=== PATIENT | female | born 1950 | race Caucasian/White ===

== ENCOUNTER 2018-07-01 16:44 | Emergency (ER) | payer MEDICARE, OTHER ==
[~2018-07-01] VITALS: Ht 162.6 cm; Wt 70.0 kg
[2018-07-01 16:53] VITALS: TEMP 97.4
[2018-07-01] MEDS ORDERED: TOPROL XL 25MG25 MG PO (17:38)
[2018-07-01] MEDS ORDERED: LIPITOR 10MG10 MG PO (17:39)
[2018-07-01] MEDS ORDERED: MULTI VITAMINS1 TAB PO (17:40)
[2018-07-01] MEDS ORDERED: THE MEDICINE S200 M2 PO (17:41)
[2018-07-01] MEDS ORDERED: LUTEIN20 M1 PO (17:41)
[2018-07-01] MEDS ORDERED: OMEGA-31 SGL PO (17:41)
[2018-07-01] MEDS ORDERED: MASON NATURAL2000 IU (17:42)
[2018-07-01] MEDS ORDERED: CALCIUM 600-D 61 TAB PO (17:42)
[2018-07-01] MEDS ORDERED: ASPIRIN 81M81 MG/TA2 PO (17:42)
[2018-07-01] MEDS ORDERED: B-12 250 MCG (17:43)
[2018-07-01] MEDS ORDERED: XARELTO15 MG PO (18:28)
[2018-07-01 19:30] VITALS: BP 120/70; PULSE 81
== END 2018-07-01 19:30 | disposition home or self-care (01) ==
LOC: COL.ER 16:44
DX: I82.4Z1 Acute embolism and thrombosis of unspecified deep veins of right distal lower extremity (principal); Z79.82 Long term (current) use of aspirin

== ENCOUNTER → 2018-09-23 | Outpatient (CLI) | payer MEDICARE, OTHER ==
[~2018-09-23] MED LIST: ASPIRIN 81M81 MG/TA2 PO; B-12 250 MCG; CALCIUM 600-D 61 TAB PO; LIPITOR 10MG10 MG PO; LUTEIN20 M1 PO; MASON NATURAL2000 IU; MULTI VITAMINS1 TAB PO; OMEGA-31 SGL PO; THE MEDICINE S200 M2 PO; TOPROL XL 25MG25 MG PO; XARELTO15 MG PO
== END ==
LOC: COL.VAS 11:05
DX: I82.401 Acute embolism and thrombosis of unspecified deep veins of right lower extremity (principal)

== ENCOUNTER → 2018-10-20 | Outpatient (CLI) | payer MEDICARE, OTHER | LOC: MC.RAD 12:26 | DX: Z12.31 Encounter for screening mammogram for malignant neoplasm of breast (principal) ==

== ENCOUNTER → 2019-11-22 | Outpatient (CLI) | payer MEDICARE, OTHER | LOC: MC.RAD 08:56 | DX: Z12.31 Encounter for screening mammogram for malignant neoplasm of breast (principal) ==

== ENCOUNTER → 2021-01-10 | Outpatient (CLI) | payer MEDICARE, OTHER | LOC: MC.RAD 12-21 09:15 | DX: Z12.31 Encounter for screening mammogram for malignant neoplasm of breast (principal) ==

== ENCOUNTER → 2021-11-04 | Outpatient (CLI) | payer MEDICARE, OTHER | LOC: MHCPAIN 09:46 | DX: R07.81 Pleurodynia (principal); M54.6 Pain in thoracic spine | CPT/HCPCS: G0463 ==

== ENCOUNTER → 2021-12-04 | Outpatient (CLI) | payer MEDICARE, OTHER | LOC: MHCPAIN 10:23 | DX: R07.81 Pleurodynia (principal); M54.6 Pain in thoracic spine | CPT/HCPCS: G0463 ==

== ENCOUNTER → 2022-01-15 | Outpatient (CLI) | payer MEDICARE, OTHER | LOC: MC.RAD 09:00 | DX: Z12.31 Encounter for screening mammogram for malignant neoplasm of breast (principal) ==

== ENCOUNTER → 2022-12-11 | Outpatient (CLI) | payer MEDICARE, OTHER ==
[~2022-12-11] MED LIST changes: +FLEXERIL 1010 MG/TAB PO
== END ==
LOC: MHCPAIN 13:24
DX: M54.17 Radiculopathy, lumbosacral region (principal); M51.36 Other intervertebral disc degeneration, lumbar region; M79.18 Myalgia, other site
CPT/HCPCS: G0463

== ENCOUNTER → 2023-01-20 | Outpatient (CLI) | payer MEDICARE | LOC: CANSCHCLI → MC.RAD 14:19 | DX: Z12.31 Encounter for screening mammogram for malignant neoplasm of breast (principal) ==

== ENCOUNTER → 2023-07-16 | Outpatient (CLI) | payer MEDICARE | LOC: MHCPAIN 10:06 | DX: M54.17 Radiculopathy, lumbosacral region (principal); M51.36 Other intervertebral disc degeneration, lumbar region; M79.18 Myalgia, other site; M54.6 Pain in thoracic spine | CPT/HCPCS: G0463 ==

== ENCOUNTER → 2023-07-29 | Outpatient (CLI) | payer MEDICARE, OTHER | LOC: COL.RAD 14:09 | DX: M51.17 Intervertebral disc disorders with radiculopathy, lumbosacral region (principal) ==

== ENCOUNTER → 2023-08-03 | Outpatient (CLI) | payer MEDICARE | LOC: COL.RAD 11:50 | DX: M48.061 Spinal stenosis, lumbar region without neurogenic claudication (principal); M48.07 Spinal stenosis, lumbosacral region; M54.17 Radiculopathy, lumbosacral region ==

== ENCOUNTER → 2023-08-03 | Outpatient (CLI) | payer MEDICARE | LOC: MHCPAIN | DX: M54.17 Radiculopathy, lumbosacral region (principal); M51.36 Other intervertebral disc degeneration, lumbar region; M79.18 Myalgia, other site | CPT/HCPCS: G0463 ==

== ENCOUNTER → 2023-08-06 | Outpatient (CLI) | payer MEDICARE | LOC: MHCPAIN 05:00 | DX: M54.16 Radiculopathy, lumbar region (principal) ==

== ENCOUNTER → 2023-09-28 | Outpatient (CLI) | payer MEDICARE | LOC: MHCPAIN 14:34 | DX: M54.17 Radiculopathy, lumbosacral region (principal); M51.36 Other intervertebral disc degeneration, lumbar region | CPT/HCPCS: G0463 ==

== ENCOUNTER → 2023-11-19 | Outpatient (CLI) | payer MEDICARE | LOC: MHCPAIN 14:22 | DX: M54.17 Radiculopathy, lumbosacral region (principal); Z98.890 Other specified postprocedural states | CPT/HCPCS: G0463 ==

== ENCOUNTER → 2024-01-21 | Outpatient (CLI) | payer MEDICARE, OTHER | LOC: MC.RAD 11:20 | DX: Z12.31 Encounter for screening mammogram for malignant neoplasm of breast (principal) ==